=== PATIENT | male | born 2000 | race Two or more races ===

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

== ENCOUNTER 2024-12-01 23:19 | Emergency (ER) | payer BC ==
[~2024-12-01] VITALS: Ht 162.6 cm; Wt 49.9 kg
[2024-12-01] MEDS: IV NS 0.9% 1,000 ML BAG IV ONE (23:54)
[2024-12-01] MEDS: KETOROLAC TROMETHAMINE 15 MG/ML VIAL IV ONE (23:58)
[2024-12-01] MEDS: FAMOTIDINE/PF INJ 20 MG/2 ML VIAL IV ONE (23:58)
[2024-12-01] MEDS: METOCLOPRAMIDE HCL 10 MG/2 ML VIAL IV ONE (23:58)
[2024-12-02 00:03] LABS: BASOPHILS % (AUTO) 0.2 % (0.0-2.0); EOSINOPHILS # (AUTO) 0.1 K/uL (0.0-0.7); EOSINOPHILS % (AUTO) 0.7 % (0.0-6.0); HEMATOCRIT 48 % (39-51); HEMOGLOBIN 16.2 g/dL (13.5-17.5); LYMPHOCYTES # (AUTO) 0.3 K/uL (0.8-4.8); LYMPHOCYTES % (AUTO) 2.6 % (20.0-44.0); MEAN CORPUSCULAR HEMOGLOBIN 29 PG (26.0-33.0); MEAN CORPUSCULAR HGB CONC 34 g/dl (31.0-36.0); MEAN CORPUSCULAR VOLUME 85 fL (80-96); MONOCYTES # (AUTO) 0.7 K/uL (0.1-1.30); NEUTROPHILS % (AUTO) 90.5 % (43.0-81.0); PLATELET COUNT (AUTO) 184 K/uL (150-450); RED BLOOD CELL COUNT(AUTO) 5.67 MIL/uL (4.5-6.0); RED CELL DISTRIBUTION WIDTH 12.7 % (11.5-15.0); WHITE BLOOD COUNT (AUTO) 12.1 K/uL (4.3-11.0)
[2024-12-02 00:14] LABS: CALCIUM, SERUM 9.3 mg/dL (8.5-10.1); CREATININE 1.1 mg/dL (0.6-1.3); POTASSIUM 3.9 mmol/L (3.5-5.1)
[2024-12-02 00:17] LABS: ALBUMIN 4.5 g/dL (3.4-5.0); BILIRUBIN,DIRECT 0.2 mg/dL (0.0-0.2); BILIRUBIN,TOTAL 0.9 mg/dL (0.2-1.0); TOTAL PROTEIN, SERUM 7.8 g/dL (6.4-8.2)
[2024-12-02] MEDS ORDERED: PANT40TA49 PO (00:43)
[2024-12-02] MEDS ORDERED: DICY10CA37 PO (00:43)
[2024-12-02] MEDS ORDERED: AMOX-430 PO (00:43)
[2024-12-02] MEDS ORDERED: ONDA4TAB5 PO (00:43)
[2024-12-02 00:44] VITALS: BP 110/68; TEMP 99; O2SAT 99
== END 2024-12-02 01:26 | disposition home or self-care (01) ==
LOC: ER 23:22
DX: R10.84 Generalized abdominal pain (principal); R11.10 Vomiting, unspecified; R19.7 Diarrhea, unspecified
CPT/HCPCS: 99284; 96374; 96361; 96375; 85025; 80048; 83690; 80076; 36415; J1308; J2765; J7030; J1885